=== PATIENT | male | born 1970 | race African-American/Black ===

== ENCOUNTER 2016-11-24 19:31 | Emergency (ER) | payer OTHER ==
--- NOTE | 2016-11-24 19:40 | PDOC ---
History of Present Illness - General History Source: Patient Exam Limitations: No Limitations - History of Present Illness Initial Comments: 11/24/16 19:52 The patient is a 46 year old male with a significant past medical history of a torn acl of the right knee (10 years ago), who presents to the ED with back right knee pain for 3 days. Patient states he was chasing a kid at work when he fell on the ground and twisted his right knee. He states the pain worsens when moving his knee around. Patient denies any head pain, back pain, neck pain. Patient denies fever, chills, nausea, vomiting, diarrhea. PAST MEDICAL HISTORY: no significant history PAST SURGICAL HISTORY: Torn ACl of right knee FAMILY HISTORY: no pertinent history SOCIAL HISTORY: Pt lives with family and is employed. MEDICATIONS: reviewed ALLERGIES: As per nursing notes ROS General: No fevers or chills, no weakness, no weight loss HEENT: No change in vision. No sore throat,. No ear pain CardioVascular: No chest pain or shortness of breath Respiratory:No cough, or wheezing. Gastrointestinal: no nausea, vomiting, diarrhea or constipation, No rectal bleeding Genitourinary: No dysuria, hematuria, or frequency Musculoskeletal: + pain in back of right knee. Neurologic: No headache, vertigo, dizziness or loss of consciousness Psychiatric: nor depression Skin: No rashes or easy bruising Endocrine: no increased thirst or abnormal weight change Allergic: no skin or latex allergy All other systems reviewed and normal PE GENERAL: The patient is awake, alert, and fully oriented, in no acute distress. HEAD: Normal with no signs of trauma. EYES: Pupils equal, round and reactive to light, extraocular movements intact, sclera anicteric, conjunctiva clear. EXTREMITIES: Tenderness on palpation of the lateral aspect of the right knee. No swelling laterally however there is a scar over the anterior knee with some swelling medially that is not tender. Neurovascular is intact. Normal range of motion, no edema. NEUROLOGICAL: Normal speech, normal gait. PSYCH: Normal mood, normal affect. SKIN: Warm, Dry, normal turgor, no rashes or lesions noted. <Austyn Villar - Last Filed: 11/24/16 19:52> - General History Source: Patient Exam Limitations: No Limitations - History of Present Illness Initial Comments: 11/24/16 21:43 A portion of this note was documented by scribe services under my direction. I have reviewed the details of the note, within reason, and agree with the documentation. The case summary and management plan written by me. Assessment and plan: This is a 46-year-old male who works at [employer] and injured his right knee when he was chasing one of the kids there at the [facility]. Patient has a history of a prior injury to his knee and had a ACL repair however there is minimal swelling and some tenderness laterally. Patient was given Daren wrap and referred to orthopedist for follow-up. Patient was given tomorrow off from work to allow him to follow-up with the orthopedist. <Say Engle I - Last Filed: 11/24/16 21:43> - General Chief Complaint: Injury Stated Complaint: WORK INJURY RIGHT KNEE Time Seen by Provider: 11/24/16 19:34 Past History <Austyn Villar - Last Filed: 11/24/16 19:52> - Past Medical History GI Disorders: (GERD) Suicide Attempt (Hx): No - Immunization History Td Vaccination: Yes - Psycho/Social/Smoking Cessation Hx Anxiety: No Suicidal Ideation: No Smoking Status: Yes Smoking History: Current some day smoker Number of Cigarettes Smoked Daily: 5 <Say Engle I - Last Filed: 11/24/16 21:43> - Past Medical History Allergies/Adverse Reactions: Allergies Allergy/AdvReac Type Severity Reaction Status Date / Time No Known Allergies Allergy Verified 11/24/16 19:36 Home Medications: Ambulatory Orders NK [No Known Home Medication] 11/24/16 *DC/Admit/Observation/Transfer - Attestations Scribe Attestion: 11/24/16 19:52 Documentation prepared by Austyn Villar, acting as biomedical technician for Say Engle MD. <Austyn Villar - Last Filed: 11/24/16 19:52> - Discharge Dispostion Admit: No <Say Engle I - Last Filed: 11/24/16 21:43> Diagnosis at time of Disposition: Sprain of right knee Qualifiers: Encounter type: initial encounter Involved ligament of knee: unspecified ligament Qualified Code(s): S83.91XA - Sprain of unspecified site of right knee , initial encounter - Discharge Dispostion Disposition: HOME Condition at time of disposition: Stable - Patient Instructions Additional Instructions: Wear the Daren wrap in tell you see the orthopedist. Call the orthopedist in the morning at [phone] for an appointment tomorrow No work tomorrow 11/25/2016 Return to the emergency department immediately with ANY new, persistent or worsening symptoms. Continue any medications as previously prescribed by your physician. You should follow up with your primary doctor as soon as possible regarding today's emergency department visit. . Please make sure your doctor reviews the results of your emergency evaluation. Thank you for coming to the Emergency Department today for your care. It was a pleasure to see you today. Please note that your evaluation is INCOMPLETE until you follow-up with your doctor.
== END 2016-11-24 19:49 | disposition home or self-care (01) ==
LOC: FER 19:31
DX: S83.91XA Sprain of unspecified site of right knee, initial encounter (principal); X58.XXXA Exposure to other specified factors, initial encounter; Y93.02 Activity, running; Y92.159 Unspecified place in reform school as the place of occurrence of the external cause; Y99.0 Civilian activity done for income or pay; F17.210 Nicotine dependence, cigarettes, uncomplicated
CPT/HCPCS: 99281-25

== ENCOUNTER 2021-01-14 21:09 | Inpatient (IN) | payer OTHER ==
[2021-01-14 21:24] VITALS: BMI 31.8
[2021-01-14] MEDS ORDERED: METOCLOPRAMIDE HCL INJECTION 10 MG/2 ML VIAL IVPB ONE (21:45)
[2021-01-14] MEDS ORDERED: LACTATED RINGERS SOLUTION 1000 ML INFUS.BAG IV ONE (21:45)
[2021-01-14] MEDS ORDERED: ACETAMINOPHEN 1000 MG/100 ML VIAL (NON FORMULARY) IVPB ONE (21:45)
[2021-01-14] MEDS ORDERED: FAMOTIDINE 20 MG/50 ML IVPB 20 MG/50 ML MG IVPB ONE ×2 (21:46→22:04)
[2021-01-14] MEDS ORDERED: ACETAMINOPHEN INJECTION 100 ML IVPB ONE (22:03)
[2021-01-14] MEDS ORDERED: METOCLOPRAMIDE HCL INJECTION 10 MG/2 ML VIAL ONE (22:03)
[2021-01-14 22:11] LABS: BASO % 0.8 % (0-2.0); EOS % 0.3 % (0-4.5); HEMATOCRIT 39.3 % (35.4-49); HEMOGLOBIN 14.1 GM/dL (11.7-16.9); LYMPH % 5.4 % (8-40); MCHC 35.9 g/dl (32.0-35.9); MEAN CELL VOLUME 92.1 fl (80-96); MEAN PLT VOLUME 6.7 fl (7.5-11.1); MONO % 5.3 % (3.8-10.2); NEUT % 88.2 % (42.8-82.8); PLATELET COUNT 296 10^3/uL (134-434); RBC 4.26 M/mm3 (4.00-5.60); RDW 13.5 % (11.9-15.9); WHITE BLOOD COUNT 9.6 K/mm3 (4.0-10.0)
[2021-01-14 22:32] LABS: CHLORIDE 104 mmol/L (98-107); SODIUM 136 mmol/L (136-145)
[2021-01-14 22:35] LABS: ALBUMIN 4.3 g/dl (3.4-5.0); ANION GAP 12 MMOL/L (8-16); BLOOD UREA NITROGEN 12.9 mg/dL (7-18); CALCIUM 9.7 mg/dL (8.5-10.1); CO2 21 mmol/L (21-32); GLUCOSE,RANDOM 94 mg/dL (74-106)
[2021-01-14 22:38] LABS: CREATININE 1.4 mg/dL (0.55-1.3); SGOT/AST 25 U/L (15-37); SGPT/ALT 28 U/L (13-61)
[2021-01-14 22:40] LABS: BILIRUBIN,TOTAL 0.4 mg/dL (0.2-1); TOT PROT 8.6 g/dl (6.4-8.2)
[2021-01-14 22:41] LABS: ALK PHOS 73 U/L (45-117)
[2021-01-14] MEDS ORDERED: DEXAMETHASONE SOD PHOSPHATE 10 MG/1 ML VIAL IVPUSH ONE (22:55)
[2021-01-14] MEDS ORDERED: DEXAMETHASONE SOD PHOSPHATE 4 MG/1 ML VIAL ONE (23:21)
[2021-01-15] MEDS ORDERED: ASPIRIN 81 MG CHEWABLE TABLETS PO ONE (00:05)
[2021-01-15 02:53] LABS: LDH 195 U/L (87-246)
[2021-01-15] MEDS ORDERED: ONDANSETRON 4 MG/2 ML VIAL IVPB ONE (02:58)
[2021-01-15] MEDS ORDERED: ACETAMINOPHEN 1000 MG/100 ML VIAL (NON FORMULARY) IVPB PRN (04:02)
[2021-01-15] MEDS ORDERED: PROCHLORPERAZINE INJECTION 10 MG/2 ML VIAL IVPB ONE (04:16)
[2021-01-15] MEDS ORDERED: PROCHLORPERAZINE INJECTION 10 MG/2 ML VIAL ONE (04:37)
[2021-01-15] MEDS ORDERED: HEPARIN NA (PORCINE) 5,000 UNITS/ML 1ML VIAL ONE ×2 (06:02→14:17)
[2021-01-15] MEDS: HEPARIN NA (PORCINE) 5,000 UNITS/ML 1ML VIAL SQ SCH ×2 (06:03→14:19)
[2021-01-15 06:46] LABS: BASO % 0.2 % (0-2.0); HEMATOCRIT 37.6 % (35.4-49); HEMOGLOBIN 13.2 GM/dL (11.7-16.9); LYMPH % 6.1 % (8-40); MCH 32.6 pg (25.7-33.7); MCHC 35.2 g/dl (32.0-35.9); MEAN CELL VOLUME 92.4 fl (80-96); MEAN PLT VOLUME 6.8 fl (7.5-11.1); MONO % 2.8 % (3.8-10.2); NEUT % 90.9 % (42.8-82.8); PLATELET COUNT 274 10^3/uL (134-434); RBC 4.07 M/mm3 (4.00-5.60); RDW 13.4 % (11.9-15.9); WHITE BLOOD COUNT 6.9 K/mm3 (4.0-10.0)
[2021-01-15 07:03] LABS: CHLORIDE 105 mmol/L (98-107); SODIUM 138 mmol/L (136-145)
[2021-01-15 07:05] LABS: CALCIUM 8.8 mg/dL (8.5-10.1)
[2021-01-15 07:06] LABS: ANION GAP 10 MMOL/L (8-16); BLOOD UREA NITROGEN 11.6 mg/dL (7-18); CO2 23 mmol/L (21-32); GLUCOSE,RANDOM 128 mg/dL (74-106)
[2021-01-15 07:09] LABS: PHOSPHOROUS 3.2 mg/dL (2.5-4.9); SGOT/AST 20 U/L (15-37); SGPT/ALT 25 U/L (13-61)
[2021-01-15 07:10] LABS: BILIRUBIN,TOTAL 0.3 mg/dL (0.2-1); TOT PROT 7.8 g/dl (6.4-8.2)
[2021-01-15 07:12] LABS: ALK PHOS 66 U/L (45-117)
[2021-01-15] MEDS ORDERED: DEXAMETHASONE SOD PHOSPHATE 4 MG/1 ML VIAL IVPB SCH (10:00)
[2021-01-15] MEDS ORDERED: FAMOTIDINE 20 MG/50 ML IVPB 20 MG/50 ML MG IVPB SCH (10:00)
[2021-01-15] MEDS ORDERED: ASCORBIC ACID 500 MG TABLET (FP) PO SCH (10:00)
[2021-01-15] MEDS ORDERED: ZINC SULFATE 220 MG CAPSULE (FP) PO SCH (10:00)
[2021-01-15] MEDS ORDERED: ERGOCALCIFEROL 8,000 UNITS/ML DROPSBTL PO SCH (10:00)
[2021-01-15] MEDS ORDERED: ENOXAPARIN NA (PORCINE) 40 MG/0.4 ML DISP.SYRIN SQ SCH (10:00)
[2021-01-15] MEDS ORDERED: SODIUM CHLORIDE 1,000 ML IV SCH (13:15)
[2021-01-15] MEDS ORDERED: DEXAMETHASONE SOD PHOSPHATE 10 MG/1 ML VIAL ONE (13:22)
[2021-01-15] MEDS ORDERED: ASCORBIC ACID 500 MG TABLET (FP) ONE (13:22)
[2021-01-15] MEDS ORDERED: FAMOTIDINE 20 MG/50 ML IVPB 20 MG/50 ML MG IVPB ONE (13:23)
[2021-01-15] MEDS ORDERED: ZINC SULFATE 220 MG CAPSULE (FP) ONE (13:23)
[2021-01-15] MEDS ORDERED: REMDESIVIR 200 MG in SODIUM CHLORIDE 250 ML IVPB ONE (14:00)
[2021-01-15 14:12] LABS: CHOLESTEROL 215 mg/dL (50-200); TRIGLYCERIDES 61 mg/dL (0-150)
[2021-01-15 14:13] LABS: LDL CHOLESTEROL (ONLY SJRH) 133 mg/dL (5-100)
[2021-01-15 14:15] LABS: HDL CHOLESTEROL 61 mg/dL (40-60)
[2021-01-15 14:17] LABS: N-TERMINAL BNP 93.1 pg/ml (5-125)
[2021-01-15 15:43] VITALS: TEMP 98.9
[2021-01-15] MEDS ORDERED: ALBUTEROL SO4 HFA INHALER IH SCH (16:00)
[2021-01-15 20:05] VITALS: BP 131/78; PULSE 81
[2021-01-15] MEDS ORDERED: BUDESONIDE/FORMETEROL FUMARATE 160/4.5 mcg INHALER IH SCH (22:00)
[2021-01-16] MEDS ORDERED: REMDESIVIR 100 MG in SODIUM CHLORIDE 250 ML IVPB SCH (13:00)
== END 2021-01-15 20:05 | disposition left against medical advice (07) | DRG 137 ==
LOC: JER 21:09 → JERBED 22:56
PROVIDERS: ADMIT Internal Medicine; ATTEND Internal Medicine
DX: U07.1 COVID-19 (principal); J45.909 Unspecified asthma, uncomplicated; K21.9 Gastro-esophageal reflux disease without esophagitis; N17.9 Acute kidney failure, unspecified; E66.9 Obesity, unspecified; N18.9 Chronic kidney disease, unspecified; E86.0 Dehydration; A08.4 Viral intestinal infection, unspecified; R09.02 Hypoxemia; Z68.31 Body mass index [BMI] 31.0-31.9, adult
CPT/HCPCS: 36415; 71045-TC-FY; 74177-TC; 76705-TC; 76775-TC; 80053; 80061; 82550; 82553; 83036; 83615; 83735; 83880; 84100; 84439; 84443; 84484; 85025; 85379; 86140; 86769; 93005; 93010; 99285-25; C9399; C9803; J0131; J1100; J1644; U0003; U0005

== ENCOUNTER 2021-01-16 19:54 | Inpatient (IN) | payer OTHER ==
[2021-01-16 20:02] VITALS: BMI 23.7
[2021-01-16] MEDS ORDERED: ONDANSETRON 4 MG/2 ML VIAL IVPUSH ONE (22:46)
[2021-01-16] MEDS ORDERED: LACTATED RINGERS SOLUTION 1000 ML INFUS.BAG IV ONE (22:46)
[2021-01-16] MEDS ORDERED: guaiFENesin 200 MG/10 ML 10 ML UNIT-DOSE CUPS PO ONE (22:46)
[2021-01-16] MEDS ORDERED: FAMOTIDINE 20 MG/50 ML IVPB 20 MG/50 ML MG IVPB ONE ×2 (22:46→23:07)
[2021-01-16 23:04] LABS: BASO % 0.6 % (0-2.0); HEMATOCRIT 39.7 % (35.4-49); HEMOGLOBIN 13.9 GM/dL (11.7-16.9); LYMPH % 11.1 % (8-40); MCH 32.2 pg (25.7-33.7); MCHC 35.1 g/dl (32.0-35.9); MEAN CELL VOLUME 91.7 fl (80-96); MEAN PLT VOLUME 6.7 fl (7.5-11.1); MONO % 6.3 % (3.8-10.2); PLATELET COUNT 245 10^3/uL (134-434); RBC 4.33 M/mm3 (4.00-5.60); RDW 13.5 % (11.9-15.9); WHITE BLOOD COUNT 8.5 K/mm3 (4.0-10.0)
[2021-01-16] MEDS ORDERED: guaiFENesin 200 MG/10 ML 10 ML UNIT-DOSE CUPS ONE (23:06)
[2021-01-16] MEDS ORDERED: ONDANSETRON 4 MG/2 ML VIAL ONE ×2 (23:06→23:12)
[2021-01-16 23:26] LABS: CHLORIDE 100 mmol/L (98-107); SODIUM 133 mmol/L (136-145)
[2021-01-16 23:29] LABS: CALCIUM 8.7 mg/dL (8.5-10.1)
[2021-01-16 23:30] LABS: ALBUMIN 4.1 g/dl (3.4-5.0); ANION GAP 8 MMOL/L (8-16); BLOOD UREA NITROGEN 14.9 mg/dL (7-18); CO2 25 mmol/L (21-32); GLUCOSE,RANDOM 100 mg/dL (74-106); MAGNESIUM 2.2 mg/dL (1.8-2.4)
[2021-01-16 23:33] LABS: SGOT/AST 49 U/L (15-37); SGPT/ALT 31 U/L (13-61)
[2021-01-16 23:34] LABS: BILIRUBIN,TOTAL 0.4 mg/dL (0.2-1)
[2021-01-16 23:35] LABS: TOT PROT 8.1 g/dl (6.4-8.2)
[2021-01-16 23:36] LABS: ALK PHOS 63 U/L (45-117)
[2021-01-17] MEDS ORDERED: LACTATED RINGERS SOLUTION 1000 ML INFUS.BAG IV ONE (00:31)
[2021-01-17] MEDS ORDERED: ALBUTEROL SO4 HFA INHALER IH PRN (00:58)
[2021-01-17] MEDS ORDERED: ACETAMINOPHEN 325 MG TABLET (FP) PO PRN (01:01)
[2021-01-17] MEDS ORDERED: DEXAMETHASONE SOD PHOSPHATE 10 MG/1 ML VIAL IVPUSH ONE (01:10)
[2021-01-17] MEDS ORDERED: DEXAMETHASONE SOD PHOSPHATE 10 MG/1 ML VIAL ONE (01:46)
[2021-01-17] MEDS: BUDESONIDE/FORMETEROL FUMARATE 160/4.5 mcg INHALER IH SCH ×2 (02:30→10:15)
[2021-01-17 05:06] LABS: EPI CELLS 1 /uL (0-25.1); HYALINE CASTS 0 /uL (0-3.1); PH,URINE 7.5 (5.0-8.0); URINE APPEARANCE CLEAR; URINE BACTERIA 6 /uL (0-1359); URINE BILIRUBIN NEGATIVE (NEGATIVE); URINE COLOR YELLOW; URINE GLUCOSE (UA) NEGATIVE (NEGATIVE); URINE KETONE NEGATIVE (NEGATIVE); URINE LEUK ESTERASE NEGATIVE (NEGATIVE); URINE NITRITE NEGATIVE (NEGATIVE); URINE PROTEIN NEGATIVE (NEGATIVE); URINE RBC 28 /uL (0-23.9); URINE UROBILINOGEN 0.2 mg/dL (0.2-1.0); URINE WBC 1 /uL (0-25.8)
[2021-01-17 05:12] LABS: COCAINE, UR NEGATIVE (NEGATIVE); METHADONE, UR NEGATIVE (NEGATIVE); OPIATES, URI NEGATIVE (NEGATIVE); PHENCYCLIDINE,URINE NEGATIVE (NEGATIVE)
[2021-01-17 05:13] LABS: URINE BARBITURATES NEGATIVE (NEGATIVE)
[2021-01-17 05:15] LABS: URINE AMPHETAMINES NEGATIVE (NEGATIVE); URINE BENZODIAZEPINES NEGATIVE (NEGATIVE)
[2021-01-17 09:30] LABS: HEMATOCRIT 39.1 % (35.4-49); HEMOGLOBIN 13.5 GM/dL (11.7-16.9); MCHC 34.6 g/dl (32.0-35.9); MEAN CELL VOLUME 92.4 fl (80-96); MEAN PLT VOLUME 6.9 fl (7.5-11.1); PLATELET COUNT 263 10^3/uL (134-434); RBC 4.23 M/mm3 (4.00-5.60); RDW 13.3 % (11.9-15.9); WHITE BLOOD COUNT 5.4 K/mm3 (4.0-10.0)
[2021-01-17] MEDS ORDERED: ENOXAPARIN NA (PORCINE) 40 MG/0.4 ML DISP.SYRIN SQ SCH (10:00)
[2021-01-17] MEDS ORDERED: ASCORBIC ACID 250 MG TABLET (FP) PO SCH (10:00)
[2021-01-17] MEDS ORDERED: FAMOTIDINE 20 MG TABLET PO SCH (10:00)
[2021-01-17] MEDS ORDERED: CHOLECALCIFEROL (VIT D3) 5000 UNITS (125 MCG) CAP PO SCH (10:00)
[2021-01-17 10:01] LABS: BLOOD UREA NITROGEN 12.9 mg/dL (7-18)
[2021-01-17 10:02] LABS: ALBUMIN 3.8 g/dl (3.4-5.0); CALCIUM 8.8 mg/dL (8.5-10.1); MAGNESIUM 2.4 mg/dL (1.8-2.4)
[2021-01-17 10:05] LABS: BILIRUBIN,TOTAL 0.4 mg/dL (0.2-1); CREATININE 0.9 mg/dL (0.55-1.3)
[2021-01-17 10:06] LABS: PHOSPHOROUS 5.1 mg/dL (2.5-4.9); TOT PROT 7.8 g/dl (6.4-8.2)
[2021-01-17] MEDS ORDERED: PT OWN MED DRAWER 7, Y5N ONE (10:13)
[2021-01-17 14:18] VITALS: BP 132/78; PULSE 82; TEMP 98.1
== END 2021-01-17 15:57 | disposition home or self-care (01) | DRG 137 ==
LOC: JER 19:54 → JERBED 23:50 → J8W 01-17 04:54
PROVIDERS: ADMIT Internal Medicine; ATTEND Internal Medicine
DX: U07.1 COVID-19 (principal); R11.2 Nausea with vomiting, unspecified; M62.82 Rhabdomyolysis; K21.9 Gastro-esophageal reflux disease without esophagitis; F17.210 Nicotine dependence, cigarettes, uncomplicated
CPT/HCPCS: 36415; 71046-TC-FY; 80053; 80307; 81003; 82550; 82553; 83735; 84100; 84484; 85025; 85027; 85379; 86140; 93005; 93010; 94010; 99285-25; C9803; J1100; U0003; U0005

== ENCOUNTER 2021-03-25 11:06 | Emergency (ER) | payer OTHER ==
[2021-03-25 11:28] VITALS: TEMP 98.4; BMI 24.4
[2021-03-25] MEDS ORDERED: ONDANSETRON 4 MG/2 ML VIAL ONE (12:08)
[2021-03-25] MEDS ORDERED: SODIUM CHLORIDE 0.9% 1000 ML INFUS.BAG IV ONE (12:22)
[2021-03-25] MEDS ORDERED: ACETAMINOPHEN 1000 MG/100 ML VIAL IVPB ONE (12:22)
[2021-03-25] MEDS ORDERED: ONDANSETRON 4 MG/2 ML VIAL IVPUSH ONE (12:22)
[2021-03-25] MEDS ORDERED: FAMOTIDINE 20 MG/50 ML IVPB 20 MG/50 ML MG IVPB ONE ×2 (12:22→12:25)
[2021-03-25] MEDS ORDERED: ACETAMINOPHEN INJECTION 100 ML IVPB ONE (12:25)
[2021-03-25 12:59] LABS: VENOUS BASE EXCESS 0.1 mmol/L (-2-2); VENOUS O2 SATURATION 24.8 % (70-80); VENOUS PCO2 34.7 mmHg (38-52); VENOUS PH 7.447 (7.310-7.410)
[2021-03-25 13:01] LABS: BASO % 0.6 % (0-2.0); EOS % 0.5 % (0-4.5); HEMATOCRIT 42.3 % (35.4-49); HEMOGLOBIN 14.5 GM/dL (11.7-16.9); LYMPH % 12.6 % (8-40); MCH 32.3 pg (25.7-33.7); MCHC 34.3 g/dl (32.0-35.9); MEAN CELL VOLUME 94.3 fl (80-96); MEAN PLT VOLUME 6.8 fl (7.5-11.1); MONO % 4.2 % (3.8-10.2); NEUT % 82.1 % (42.8-82.8); PLATELET COUNT 318 10^3/uL (134-434); RBC 4.49 M/mm3 (4.00-5.60); RDW 13.8 % (11.9-15.9)
[2021-03-25 13:08] LABS: INR 1.01 (0.83-1.09); PROTHROMBIN TIME (PATIENT) 11.3 SEC (9.7-13.0)
[2021-03-25 13:11] LABS: ACTIVATED PTT 28.4 SECONDS (25.2-36.5)
[2021-03-25 13:19] LABS: CHLORIDE 105 mmol/L (98-107); SODIUM 137 mmol/L (136-145)
[2021-03-25 13:21] LABS: ALBUMIN 4.1 g/dl (3.4-5.0); CALCIUM 9.6 mg/dL (8.5-10.1)
[2021-03-25 13:22] LABS: ANION GAP 11 MMOL/L (8-16); CO2 22 mmol/L (21-32); GLUCOSE,RANDOM 112 mg/dL (74-106); LIPASE 72 U/L (73-393); MAGNESIUM 1.9 mg/dL (1.8-2.4)
[2021-03-25 13:24] LABS: SGPT/ALT 26 U/L (13-61)
[2021-03-25 13:25] LABS: SGOT/AST 26 U/L (15-37)
[2021-03-25 13:26] LABS: BILIRUBIN,TOTAL 0.7 mg/dL (0.2-1); TOT PROT 8.5 g/dl (6.4-8.2)
[2021-03-25 13:29] LABS: ALK PHOS 71 U/L (45-117)
[2021-03-25 15:59] VITALS: BP 126/70; PULSE 80
== END 2021-03-25 15:59 | disposition home or self-care (01) ==
LOC: JER 11:06
PROC: 3E0333Z Introduction of Anti-inflammatory into Peripheral Vein, Percutaneous Approach (ICD-10-PCS; principal; 2021-03-25)
PROC: 3E033GC Introduction of Other Therapeutic Substance into Peripheral Vein, Percutaneous Approach (ICD-10-PCS; 2021-03-25)
PROC: 3E033GC Introduction of Other Therapeutic Substance into Peripheral Vein, Percutaneous Approach (ICD-10-PCS; 2021-03-25)
DX: R11.2 Nausea with vomiting, unspecified (principal); R19.7 Diarrhea, unspecified; R05.1 Acute cough
CPT/HCPCS: 36415; 71045-TC-FY; 80053; 82550; 82553; 82803; 83605; 83690; 83735; 84484; 85025; 85610; 85730; 93005; 93010; 96374; 96375; 99285-25; C9803; J0131; U0003; U0005

== ENCOUNTER 2021-08-16 08:57 | Emergency (ER) | payer OTHER ==
[2021-08-16 09:16] VITALS: BP 132/94; PULSE 65; TEMP 98.5; BMI 27.1
[2021-08-16] MEDS ORDERED: FAMOTIDINE 20 MG/50 ML IVPB 20 MG/50 ML MG IVPB ONE ×2 (09:17→10:24)
[2021-08-16] MEDS ORDERED: SODIUM CHLORIDE 0.9% 500 ML INFUS.BAG IV ONE (09:17)
[2021-08-16] MEDS ORDERED: ONDANSETRON 4 MG/2 ML VIAL IVPUSH ONE (09:18)
[2021-08-16] MEDS ORDERED: ACETAMINOPHEN 1000 MG/100 ML BAG IVPB ONE (09:22)
[2021-08-16] MEDS ORDERED: ACETAMINOPHEN INJECTION 100 ML IVPB ONE (10:23)
[2021-08-16] MEDS ORDERED: ONDANSETRON 4 MG/2 ML VIAL ONE (10:24)
[2021-08-16 10:25] LABS: BASO % 0.4 % (0-2.0); EOS % 0.1 % (0-4.5); HEMATOCRIT 41.4 % (35.4-49); HEMOGLOBIN 14.4 GM/dL (11.7-16.9); LYMPH % 14.5 % (8-40); MCH 31.7 pg (25.7-33.7); MCHC 34.8 g/dl (32.0-35.9); MEAN CELL VOLUME 91.2 fl (80-96); MEAN PLT VOLUME 6.5 fl (7.5-11.1); MONO % 4.5 % (3.8-10.2); NEUT % 80.5 % (42.8-82.8); PLATELET COUNT 286 10^3/uL (134-434); RBC 4.55 M/mm3 (4.00-5.60); WHITE BLOOD COUNT 10.5 K/mm3 (4.0-10.0)
[2021-08-16 10:55] LABS: ALBUMIN 4.4 g/dl (3.4-5.0); CALCIUM 10.4 mg/dL (8.5-10.1)
[2021-08-16 10:56] LABS: BLOOD UREA NITROGEN 17.8 mg/dL (7-18); MAGNESIUM 2.6 mg/dL (1.8-2.4)
[2021-08-16 10:58] LABS: CREATININE 1.7 mg/dL (0.55-1.3)
[2021-08-16 10:59] LABS: BILIRUBIN,TOTAL 0.9 mg/dL (0.2-1); TOT PROT 8.5 g/dl (6.4-8.2)
== END 2021-08-16 12:18 | disposition home or self-care (01) ==
LOC: JER 08:57
PROC: 3E0333Z Introduction of Anti-inflammatory into Peripheral Vein, Percutaneous Approach (ICD-10-PCS; principal; 2021-08-16)
PROC: 3E033GC Introduction of Other Therapeutic Substance into Peripheral Vein, Percutaneous Approach (ICD-10-PCS; 2021-08-16)
PROC: 3E033GC Introduction of Other Therapeutic Substance into Peripheral Vein, Percutaneous Approach (ICD-10-PCS; 2021-08-16)
DX: R11.2 Nausea with vomiting, unspecified (principal); R10.13 Epigastric pain
CPT/HCPCS: 36415; 80053; 83690; 83735; 85025; 93005; 93010; 99284-25

== ENCOUNTER 2022-06-17 16:47 | Emergency (ER) | payer OTHER ==
[2022-06-17 17:16] VITALS: BMI 25.0
[2022-06-17] MEDS ORDERED: SODIUM CHLORIDE 1,000 ML IV STA (17:48)
[2022-06-17] MEDS ORDERED: LORazepam 2 MG/ML SDV VIAL IVPUSH ONE (17:49)
[2022-06-17] MEDS ORDERED: HALOPERIDOL LACTATE 5 MG/ML IM ONE ×2 (17:49→18:05)
[2022-06-17 18:38] LABS: BASO % 2.1 % (0-2.0); EOS % 0.5 % (0-4.5); HEMATOCRIT 41.5 % (35.4-49); HEMOGLOBIN 14.3 GM/dL (11.7-16.9); LYMPH % 6.5 % (8-40); MCH 31.5 pg (25.7-33.7); MCHC 34.4 g/dl (32.0-35.9); MEAN CELL VOLUME 91.5 fl (80-96); MEAN PLT VOLUME 6.7 fl (7.5-11.1); MONO % 2.2 % (3.8-10.2); NEUT % 88.7 % (42.8-82.8); PLATELET COUNT 302 10^3/uL (134-434); RBC 4.54 M/mm3 (4.00-5.60); RDW 13.4 % (11.9-15.9); WHITE BLOOD COUNT 10.5 K/mm3 (4.0-10.0)
[2022-06-17 19:00] LABS: ALBUMIN 4.3 g/dl (3.4-5.0); BLOOD UREA NITROGEN 9.9 mg/dL (7-18); CALCIUM 9.9 mg/dL (8.5-10.1)
[2022-06-17 19:05] LABS: BILIRUBIN,TOTAL 0.6 mg/dL (0.2-1); TOT PROT 8.2 g/dl (6.4-8.2)
[2022-06-17 20:53] VITALS: BP 125/71; PULSE 93; RESP 18; TEMP 99.8
[2022-06-17 22:05] LABS: EPI CELLS 9 /uL (0-25.1); HYALINE CASTS 1 /uL (0-3.1); PH,URINE 5.5 (5.0-8.0); URINE APPEARANCE CLOUDY; URINE BACTERIA 6 /uL (0-1359); URINE BILIRUBIN NEGATIVE (NEGATIVE); URINE COLOR YELLOW; URINE GLUCOSE (UA) NEGATIVE (NEGATIVE); URINE KETONE TRACE (NEGATIVE); URINE LEUK ESTERASE NEGATIVE (NEGATIVE); URINE NITRITE NEGATIVE (NEGATIVE); URINE PROTEIN TRACE (NEGATIVE); URINE RBC 22 /uL (0-23.9); URINE WBC 13 /uL (0-25.8)
== END 2022-06-17 22:42 | disposition home or self-care (01) ==
LOC: JER 16:47
PROC: 3E033GC Introduction of Other Therapeutic Substance into Peripheral Vein, Percutaneous Approach (ICD-10-PCS; principal; 2022-06-17)
PROC: 3E023GC Introduction of Other Therapeutic Substance into Muscle, Percutaneous Approach (ICD-10-PCS; principal; 2022-06-17)
DX: J06.9 Acute upper respiratory infection, unspecified (principal); F12.99 Cannabis use, unspecified with unspecified cannabis-induced disorder; R11.10 Vomiting, unspecified
CPT/HCPCS: 0241U-QW; 36415; 71046-TC-FY; 80053; 81003; 83690; 85025; 87086; 93005; 93010; 99285-25

== ENCOUNTER 2022-12-21 14:44 | Emergency (ER) | payer OTHER ==
[2022-12-21 15:00] VITALS: BMI 24.4
[2022-12-21] MEDS ORDERED: SODIUM CHLORIDE 0.9% 500 ML INFUS.BAG IV ONE (15:36)
[2022-12-21] MEDS ORDERED: FAMOTIDINE 20 MG/50 ML IVPB 20 MG/50 ML MG IVPB ONE ×2 (15:36→15:55)
[2022-12-21] MEDS ORDERED: ACETAMINOPHEN 1000 MG/100 ML BAG IVPB ONE (15:36)
[2022-12-21] MEDS ORDERED: ONDANSETRON 4 MG/2 ML VIAL IVPUSH ONE (15:49)
[2022-12-21] MEDS ORDERED: ONDANSETRON 4 MG/2 ML VIAL ONE (15:54)
[2022-12-21] MEDS ORDERED: ACETAMINOPHEN INJECTION 100 ML IVPB ONE (15:54)
[2022-12-21 16:38] LABS: BASO % 0.5 % (0-2.0); EOS % 0.1 % (0-4.5); HEMATOCRIT 42.4 % (35.4-49); HEMOGLOBIN 14.6 GM/dL (11.7-16.9); MCH 31.3 pg (25.7-33.7); MCHC 34.6 g/dl (32.0-35.9); MEAN CELL VOLUME 90.5 fl (80-96); MEAN PLT VOLUME 6.6 fl (7.5-11.1); MONO % 4.3 % (3.8-10.2); NEUT % 73.1 % (42.8-82.8); PLATELET COUNT 287 10^3/uL (134-434); RBC 4.68 M/mm3 (4.00-5.60); RDW 13.8 % (11.9-15.9); WHITE BLOOD COUNT 9.9 K/mm3 (4.0-10.0)
[2022-12-21 16:50] LABS: POTASSIUM 3.8 mmol/L (3.5-5.1)
[2022-12-21 16:54] LABS: ALBUMIN 4.2 g/dl (3.4-5.0); BLOOD UREA NITROGEN 7.8 mg/dL (7-18); CALCIUM 9.6 mg/dL (8.5-10.1)
[2022-12-21 16:57] LABS: CREATININE 0.9 mg/dL (0.55-1.3)
[2022-12-21 16:59] LABS: BILIRUBIN,TOTAL 0.4 mg/dL (0.2-1); TOT PROT 8.4 g/dl (6.4-8.2)
[2022-12-21 21:30] VITALS: BP 130/85; PULSE 88; RESP 16; TEMP 97.9
[2022-12-21] MEDS ORDERED: ACETAMINOPHEN 325 MG TABLET (FP) ONE (21:52)
[2022-12-21] MEDS ORDERED: ACETAMINOPHEN 325 MG TABLET (FP) PO ONE (21:58)
== END 2022-12-21 22:05 | disposition home or self-care (01) ==
LOC: JER 14:44
PROC: 3E033GC Introduction of Other Therapeutic Substance into Peripheral Vein, Percutaneous Approach (ICD-10-PCS; principal; 2022-12-21)
PROC: 3E033NZ Introduction of Analgesics, Hypnotics, Sedatives into Peripheral Vein, Percutaneous Approach (ICD-10-PCS; 2022-12-21)
PROC: 3E033GC Introduction of Other Therapeutic Substance into Peripheral Vein, Percutaneous Approach (ICD-10-PCS; 2022-12-21)
DX: R68.84 Jaw pain (principal); R11.2 Nausea with vomiting, unspecified; Y04.0XXA Assault by unarmed brawl or fight, initial encounter
CPT/HCPCS: 36415; 70450-TC; 70486-TC; 80053; 83690; 85025; 99284-25